=== PATIENT | female | born 1965 | race Asian ===

== ENCOUNTER 2021-11-06 22:35 | Emergency (ER) | payer BC ==
--- NOTE | 2021-11-06 23:55 | ED Physician Documentation ---
PD HPI DYSPNEA - Stated complaint Stated Complaint: SOA/COUGHING - Chief complaint Chief Complaint: Resp - History obtained from History obtained from: Patient - History of Present Illness Timing - onset: How many weeks ago (1) Timing - details: Gradual onset Associated symptoms: Cough. No: Fever, Chest pain / discomfort, Bilateral edema, Unilateral edema Recently seen: Not recently seen - Additional information Additional information: patient had sore throat last week and lost my voice (per patient). The sore throat has resolved although she continues to have hoarse voice. She has had nonproductive cough x 4-5 days with mild dyspnea. She is COVID vaccinated without booster and has had two negative COVID tests over past week. Her chief concern at this time is sensation of throat becoming constricted over past 1-2 days. Review of Systems Constitutional: denies: Fever Ears: denies: Ear pain Nose: denies: Congestion Throat: reports: Sore throat (last week but has resolved), Other (sensation of throat closing (per patient)) Cardiac: denies: Chest pain / pressure Respiratory: reports: Dyspnea, Cough Skin: denies: Rash PD PAST MEDICAL HISTORY - Past Medical History Past Medical History: No - Present Medications Home Medications: Ambulatory Orders Medication Instructions Recorded Confirmed predniSONE [Deltasone] 40 mg PO DAILY 3 Days #6 tablet 11/07/21 - Allergies Allergies/Adverse Reactions: Allergies Allergy/AdvReac Type Severity Reaction Status Date / Time [id number] Reductase AdvReac Cramps Verified 11/06/21 22:48 Inhibitor PD ED PE NORMAL - Vitals Vital signs reviewed: Yes - General General: Alert and oriented X 3, No acute distress, Well developed/nourished, Other (hoarse voice (s/o laryngitis), mostly whispering. ) - HEENT HEENT: Moist mucous membranes, Pharynx benign - Neck Neck: Supple, no meningeal sign - Cardiac Cardiac: RRR, No murmur - Respiratory Respiratory: No respiratory distress, Other (breath sounds are clear but patient takes long, slow breaths, thus difficult to confidently assess for adventitious sounds) Results - Vitals Vitals: Oxygen O2 Source Room air - Labs Labs: Laboratory Tests 11/07/21 00:50 Nasal Adenovirus (PCR) NOT DETECTED Nasal B. parapertussis DNA (PCR) NOT DETECTED Nasal Coronavir 229E PCR NOT DETECTED Nasal Coronavir HKU1 PCR NOT DETECTED Nasal Coronavir NL63 PCR NOT DETECTED Nasal Coronavir OC43 PCR NOT DETECTED Nasal Enterovir/Rhinovir PCR NOT DETECTED Nasal Influenza B PCR NOT DETECTED Nasal Influenza A PCR NOT DETECTED Nasal Parainfluen 1 PCR NOT DETECTED Nasal Parainfluen 2 PCR NOT DETECTED Nasal Parainfluen 3 PCR NOT DETECTED Nasal Parainfluen 4 PCR NOT DETECTED Nasal RSV (PCR) NOT DETECTED Nasal B.pertussis DNA PCR NOT DETECTED Nasal C.pneumoniae (PCR) NOT DETECTED Tariq Human Metapneumo PCR NOT DETECTED Nasal M.pneumoniae (PCR) NOT DETECTED Nasal SARS-CoV-2 (PCR) NOT DETECTED - Rads (name of study) chest xray Radiology: Prelim report reviewed, See rad report PD MEDICAL DECISION MAKING - ED course Complexity details: reviewed results, re-evaluated patient, considered differential, d/w patient ED course: URI symptoms x 1 week. She is in NAD including no respiratory distress. She does speak mostly in a whisper c/w laryngitis. CXR performed due to some difficulty assessing for adventitious lung sounds on auscultation; no abnormalities noted on CXR. Respiratory PCR panel is negative for viruses tested including COVID and influenza although a viral URI would still seem to be the most likely explanation for her symptoms. Doubt allergic component to her c/o throat swelling/sensation of throat closing (no rash/hives or pruritis), but given the nature of this c/o, a dose of decadron is given in the ED and e-prescribed short course of prednisone. Results d/w patient. Departure - Departure Disposition: 01 Home, Self Care Clinical Impression: Upper respiratory infection Qualifiers: URI type: unspecified URI Qualified Code(s): J06.9 - Acute upper respiratory infection, unspecified Condition: Good Instructions: ED Upper Resp Infec No Abx Tx Prescriptions: predniSONE [Deltasone] 40 mg PO DAILY 3 Days #6 tablet Comments: The chest xray did not show any abnormality such as pneumonia. Your respiratory viral PCR panel (includes COVID, influenza) was negative for the viruses tested. A prescription for prednisone was electronically submitted to [facility] pharmacy in [place]. Discharge Date/Time: 11/07/21 02:38
[2021-11-07] MEDS ORDERED: CHERRY SYRUP 10 ML UDC PO ONE (00:20)
[2021-11-07] MEDS ORDERED: DEXAMETHASONE 10 MG/ML VIAL PO STA (00:20)
--- NOTE | 2021-11-07 01:19 | XRAY Report ---
PROCEDURE: Chest 2 View X-Ray INDICATIONS: cough, dyspnea TECHNIQUE: 2 views of the chest. COMPARISON: 09/24/2016. FINDINGS: Surgical changes and devices: None. Lungs and pleura: No pleural effusions or pneumothorax. Lungs are clear. Mediastinum: Mediastinal contours are normal. Heart size is normal. Bones and chest wall: No suspicious bony abnormalities. Soft tissues appear unremarkable. IMPRESSION: 1. No acute cardiopulmonary disease. Reviewed by: Juan Montez MD on 11/07/2021 1:18 AM PDT Approved by: Juan Montez MD on 11/07/2021 1:18 AM PDT Station ID: [id number]
[2021-11-07 02:03] VITALS: BP 94/81
[2021-11-07 02:13] LABS: CORONAVIRUS 229E-RESP PCR NOT DETECTED; CORONAVIRUS HKU1-RESP PCR NOT DETECTED; CORONAVIRUS NL63-RESP PCR NOT DETECTED; CORONAVIRUS OC43-RESP PCR NOT DETECTED; HUMAN METAPNEUMOVIRUS NOT DETECTED; INFLUENZA A- RESP PCR PANEL NOT DETECTED; INFLUENZA B - RESP PCR PANEL NOT DETECTED; PARAINFLUENZA VIRUS 1 NOT DETECTED; PARAINFLUENZA VIRUS 2 NOT DETECTED; PARAINFLUENZA VIRUS 3 NOT DETECTED; PARAINFLUENZA VIRUS 4 NOT DETECTED; RHINOVIRUS/ENTEROVIRUS NOT DETECTED; SARS-CoV-2 -RESP PCR PANEL NOT DETECTED
[2021-11-07 02:14] LABS: B. PARAPERTUSSIS- RESP PCR PAN NOT DETECTED; B. PERTUSSIS- RESP PCR PANEL NOT DETECTED; C. PNEUMONIAE- RESP PCR PANEL NOT DETECTED; M. PNEUMONIAE- RESP PCR PANEL NOT DETECTED; RSV- RESP PCR PANEL NOT DETECTED
== END 2021-11-07 02:38 | disposition home or self-care (01) ==
LOC: ED 22:35
DX: J06.9 Acute upper respiratory infection, unspecified (principal); Z20.822 Contact with and (suspected) exposure to COVID-19
CPT/HCPCS: 71046; 87633; 99283; 99284; A9270